=== PATIENT | male | born 1960 ===

== ENCOUNTER 2020-05-19 05:24 | Emergency (ER) | payer SELFPAY ==
[2020-05-19] MEDS ORDERED: ONDANSETRON 4 MG/2 ML INJ IV ONE (05:40)
[2020-05-19] MEDS ORDERED: MORPHINE 4 MG/1 ML INJ IV ONE (05:40)
[2020-05-19] MEDS ORDERED: KETOROLAC 30 MG/1 ML INJ IV ONE (06:22)
--- NOTE | 2020-05-19 06:38 | XRay Report ---
Left clavicle 2 views INDICATION: Left clavicle pain IMPRESSION: Left clavicle is intact. There is no evidence of severe AC joint disruption. Signer Name: Ezio Lazcano MD Signed: 05/19/2020 6:33 AM Workstation Name: [id number]
--- NOTE | 2020-05-19 06:39 | XRay Report ---
Left shoulder 3 views INDICATION: Left shoulder pain following injury IMPRESSION: No fracture or subluxation. Signer Name: Ezio Lazcano MD Signed: 05/19/2020 6:35 AM Workstation Name: [email or web address]
--- NOTE | 2020-05-19 06:39 | XRay Report ---
Thoracic spine 4 views Indication back pain following injury IMPRESSION: mild multilevel discogenic degenerative changes throughout much of the thoracic spine. No evidence of fracture or subluxation. Signer Name: Ezio Lazcano MD Signed: 05/19/2020 6:34 AM Workstation Name: [id number]
--- NOTE | 2020-05-19 06:39 | XRay Report ---
Cervical spine 4 views INDICATION: Neck pain following injury IMPRESSION: no acute fracture or subluxation of the cervical spine is Signer Name: Ezio Lazcano MD Signed: 05/19/2020 6:35 AM Workstation Name: [id number]
--- NOTE | 2020-05-19 06:40 | XRay Report ---
Lumbar spine 2 views INDICATION: Low back pain following injury. IMPRESSION: The lumbar spinal alignment appears within normal limits. Mild discogenic degenerative ch anges at L1-L2. No fracture or subluxation. Signer Name: Ezio Lazcano MD Signed: 05/19/2020 6:36 AM Workstation Name: [id number]
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
[2020-05-19 07:45] VITALS: BP 121/78
== END 2020-05-19 09:21 | disposition home or self-care (01) ==
LOC: ED 05:24
DX: S13.4XXA Sprain of ligaments of cervical spine, initial encounter (principal); S40.022A Contusion of left upper arm, initial encounter; I10 Essential (primary) hypertension; I25.2 Old myocardial infarction; Z95.818 Presence of other cardiac implants and grafts; Z79.899 Other long term (current) drug therapy; V89.2XXA Person injured in unspecified motor-vehicle accident, traffic, initial encounter; Y93.89 Activity, other specified; Y92.410 Unspecified street and highway as the place of occurrence of the external cause; Y99.8 Other external cause status
CPT/HCPCS: 72040; 72072; 72100; 72125; 73000; 73030; 96374; 96375; 99285; J1885; J2270; J2405